=== PATIENT | male | born 1960 | race African-American/Black ===

== ENCOUNTER 2022-02-28 19:59 | Inpatient (IN) | payer OTHER ==
[~2022-02-28] VITALS: Ht 180.3 cm; Wt 62.9 kg
[2022-03-01] VITALS (8 sets, daily range): BP systolic 97–143; BP diastolic 59–83
[2022-03-01] MEDS ORDERED: ASPIRIN 81MG TABLET PO ONE (00:15)
[2022-03-01 01:05] LABS: BASOPHILS % 1.9 % (0.0-2.0); EOSINOPHILS % 2.4 % (0.0-5.0); LYMPHOCYTES % 23.1 % (20.0-50.0); MEAN CORPUSCULAR HEMOGLOBIN 21.1 pg (28.0-32.0); MEAN CORPUSCULAR VOLUME 70.3 fL (80.0-94.0); MEAN PLATELET VOLUME 6.7 fl (7.4-10.4); MONOCYTES % 11.1 % (2.0-8.0); NEUTROPHILS % 61.5 % (40.0-76.0); PLATELET 540 x1000/uL (130-400); RED BLOOD CELL COUNT 2.96 mill/uL (4.7-6.1); RED CELL DISTRIBUTION WIDTH 20.4 % (11.6-14.6)
[2022-03-01 01:13] LABS: HEMATOCRIT. 20.8 % (42.0-52.0); HEMOGLOBIN. 6.2 g/dL (14.0-18.0)
[2022-03-01] MEDS ORDERED: ACETAMINOPHEN 325MG TABLET PO PRN (10:00)
[2022-03-01] MEDS ORDERED: ONDANSETRON HCL 4MG/2ML INJ IV PRN (10:00)
[2022-03-01] MEDS: TAMSULOSIN HCL 0.4MG SR CAPSULE PO SCH (10:14)
[2022-03-01 13:14] LABS: CHLORIDE 106 mEq/L (98-107)
[2022-03-01] MEDS: OMEPRAZOLE 20MG CAPSULE EXTENDED RELEASE PO SCH (16:46)
[2022-03-01 16:57] LABS: PROTHROMBIN TIME 10.8 sec (9.6-11.0)
[2022-03-01 17:39] LABS: *AMPHETAMINES SCREEN URINE NEGATIVE (NEGATIVE); *BARBITURATES SCREEN URINE NEGATIVE (NEGATIVE); *BENZODIAZEPINES SCREEN URINE NEGATIVE (NEGATIVE); *COCAINE SCREEN URINE PRESUMTIVE POSITIVE (NEGATIVE); CANNABINOID URINE SCREEN PRESUMTIVE POSITIVE (NEGATIVE); METHADONE URINE SCREEN NEGATIVE (NEGATIVE); OPIATES URINE SCREEN NEGATIVE (NEGATIVE); PHENCYCLIDINE URINE SCREEN NEGATIVE (NEGATIVE)
[2022-03-01 18:09] LABS: FERRITIN 10 ng/mL (22-322)
[2022-03-01 18:46] LABS: VITAMIN B12 SERUM 1287 pg/mL (211-911)
[2022-03-01] MEDS: NICOTINE 7MG PATCH TD SCH (21:03)
[2022-03-01 21:09] LABS: HEMATOCRIT 23.8 % (42.0-52.0); HEMOGLOBIN 7.3 g/dL (14.0-18.0)
[2022-03-02] VITALS (7 sets, daily range): BP systolic 107–145; BP diastolic 59–81
[2022-03-02] MEDS: OMEPRAZOLE 20MG CAPSULE EXTENDED RELEASE PO SCH (06:10)
[2022-03-02 06:57] LABS: BASOPHILS % 2.2 % (0.0-2.0); EOSINOPHILS % 2.8 % (0.0-5.0); HEMATOCRIT. 23.3 % (42.0-52.0); LYMPHOCYTES % 23.4 % (20.0-50.0); MEAN CORPUSCULAR HEMOGLOBIN 21.7 pg (28.0-32.0); MEAN CORPUSCULAR VOLUME 71.9 fL (80.0-94.0); MEAN PLATELET VOLUME 7.3 fl (7.4-10.4); NEUTROPHILS % 61.6 % (40.0-76.0); PLATELET 492 x1000/uL (130-400); RED BLOOD CELL COUNT 3.24 mill/uL (4.7-6.1)
[2022-03-02] MEDS: TAMSULOSIN HCL 0.4MG SR CAPSULE PO SCH (09:04)
[2022-03-02] MEDS: NICOTINE 7MG PATCH TD SCH (09:05)
[2022-03-02] MEDS: SORBITOL 70% SOLN 30ML PO SCH ×3 (12:59→20:06)
[2022-03-02] MEDS: IRON SUCROSE COMPLEX 100 MG/5 ML ML IV SCH (13:00)
[2022-03-02] MEDS: BISACODYL 5MG TABLET PO SCH ×3 (13:00→20:05)
[2022-03-02] MEDS: METOCLOPRAMIDE HCL 10MG/2ML VIAL IV SCH ×3 (13:01→20:06)
[2022-03-03] VITALS: BP 125/71
[2022-03-03] MEDS: METOCLOPRAMIDE HCL 10MG/2ML VIAL IV SCH (00:07)
[2022-03-03] MEDS: BISACODYL 5MG TABLET PO SCH (00:07)
[2022-03-03] MEDS: SORBITOL 70% SOLN 30ML PO SCH (00:07)
[2022-03-03 04:00] VITALS: BP 105/63
[2022-03-03 04:26] LABS: BASOPHILS % 1.6 % (0.0-2.0); EOSINOPHILS % 1.3 % (0.0-5.0); HEMATOCRIT. 32.4 % (42.0-52.0); LYMPHOCYTES % 20.5 % (20.0-50.0); MEAN CORPUSCULAR HEMOGLOBIN 22.6 pg (28.0-32.0); MEAN CORPUSCULAR VOLUME 73.6 fL (80.0-94.0); MEAN PLATELET VOLUME 7.5 fl (7.4-10.4); MONOCYTES % 10.2 % (2.0-8.0); NEUTROPHILS % 66.4 % (40.0-76.0); PLATELET 583 x1000/uL (130-400); RED BLOOD CELL COUNT 4.41 mill/uL (4.7-6.1); RED CELL DISTRIBUTION WIDTH 20.8 % (11.6-14.6)
[2022-03-03 04:28] LABS: PROTHROMBIN TIME 10.8 sec (9.6-11.0)
[2022-03-03 06:13] LABS: CHLORIDE 108 mEq/L (98-107)
[2022-03-03] MEDS: OMEPRAZOLE 20MG CAPSULE EXTENDED RELEASE PO SCH (07:10)
[2022-03-03 08:00] VITALS: BP 117/66
[2022-03-03] MEDS: NICOTINE 7MG PATCH TD SCH (09:06)
[2022-03-03] MEDS: TAMSULOSIN HCL 0.4MG SR CAPSULE PO SCH (09:07)
[2022-03-03] MEDS: IRON SUCROSE COMPLEX 100 MG/5 ML ML IV SCH (09:08)
[2022-03-03 12:00] VITALS: BP 114/68
[2022-03-03] MEDS ORDERED: MIDAZOLAM HCL 5 MG/5 ML VIAL ONE (12:52)
[2022-03-03] MEDS ORDERED: PROPOFOL 200MG/20ML VIAL IV ONE ×2 (12:53→12:55)
[2022-03-03] MEDS ORDERED: LIDOCAINE HCL 1% 10 MG/ML 10ML VIAL ONE (12:53)
[2022-03-03] MEDS ORDERED: OMEP40CA20 MT (13:04)
[2022-03-03] MEDS ORDERED: PHENYLEPHRINE HCL 10 MG/ML 1ML (IV VIAL) IV ONE ×3 (13:04→13:34)
[2022-03-03] MEDS ORDERED: ETOMIDATE 2MG/ML 10ML VIAL IV ONE (13:36)
[2022-03-03 16:00] VITALS: BP 122/67
[2022-03-03 16:03] LABS: CHLORIDE 105 mEq/L (98-107)
[2022-03-03 20:00] VITALS: BP 107/70
[2022-03-04] VITALS (7 sets, daily range): BP systolic 102–148; BP diastolic 52–82
[2022-03-04] MEDS: OMEPRAZOLE 20MG CAPSULE EXTENDED RELEASE PO SCH (06:45)
[2022-03-04] MEDS: TAMSULOSIN HCL 0.4MG SR CAPSULE PO SCH (09:48)
[2022-03-04] MEDS: IRON SUCROSE COMPLEX 100 MG/5 ML ML IV SCH (09:49)
[2022-03-04] MEDS: NICOTINE 7MG PATCH TD SCH (09:51)
[2022-03-04] MEDS ORDERED: DIATR MEGLU/DIATRIZOATE SOLN 30ML PO SCH (10:00)
[2022-03-04] MEDS ORDERED: IOHEXOL-300 100 ML BOTTLE ONE (13:10)
[2022-03-04] MEDS ORDERED: TAMS-11 MT (19:30)
[2022-03-05 00:18] VITALS: BP 102/52
[2022-03-05 04:00] VITALS: BP 100/50
[2022-03-05] MEDS: OMEPRAZOLE 20MG CAPSULE EXTENDED RELEASE PO SCH (06:15)
[2022-03-05 06:39] LABS: EOSINOPHILS % 2.5 % (0.0-5.0); HEMATOCRIT. 25.5 % (42.0-52.0); HEMOGLOBIN. 8.2 g/dL (14.0-18.0); LYMPHOCYTES % 18.3 % (20.0-50.0); MEAN CORPUSCULAR HEMOGLOBIN 23.1 pg (28.0-32.0); MEAN CORPUSCULAR VOLUME 72.2 fL (80.0-94.0); MEAN PLATELET VOLUME 7.6 fl (7.4-10.4); MONOCYTES % 13.1 % (2.0-8.0); NEUTROPHILS % 65.1 % (40.0-76.0); PLATELET 386 x1000/uL (130-400); RED BLOOD CELL COUNT 3.53 mill/uL (4.7-6.1); RED CELL DISTRIBUTION WIDTH 20.8 % (11.6-14.6)
[2022-03-05 06:47] LABS: CHLORIDE 104 mEq/L (98-107)
[2022-03-05 08:00] VITALS: BP 111/63
[2022-03-05] MEDS: NICOTINE 7MG PATCH TD SCH (09:33)
[2022-03-05] MEDS: TAMSULOSIN HCL 0.4MG SR CAPSULE PO SCH (09:34)
[2022-03-05 10:04] VITALS: BP 111/63
== END 2022-03-05 10:30 | disposition home or self-care (01) | DRG 223 ==
LOC: ER 19:59 → 8WST 03-01 02:21 → EDBEDREQ 03-01 02:27 → EDBEDREQTM 03-01 02:27
PROVIDERS: ADMIT Internal Medicine; ATTEND Internal Medicine
PROC: 30233N1 Transfusion of Nonautologous Red Blood Cells into Peripheral Vein, Percutaneous Approach (ICD-10-PCS; principal; 2022-03-01)
PROC: 0DBC8ZZ Excision of Ileocecal Valve, Via Natural or Artificial Opening Endoscopic (ICD-10-PCS; 2022-03-03)
PROC: 0DB68ZX Excision of Stomach, Via Natural or Artificial Opening Endoscopic, Diagnostic (ICD-10-PCS; 2022-03-03)
DX: K29.41 Chronic atrophic gastritis with bleeding (principal); E43 Unspecified severe protein-calorie malnutrition; I11.0 Hypertensive heart disease with heart failure; I95.9 Hypotension, unspecified; I50.9 Heart failure, unspecified; D50.9 Iron deficiency anemia, unspecified; F17.210 Nicotine dependence, cigarettes, uncomplicated; F19.10 Other psychoactive substance abuse, uncomplicated; K76.0 Fatty (change of) liver, not elsewhere classified; N28.1 Cyst of kidney, acquired; Z20.822 Contact with and (suspected) exposure to COVID-19; Z71.51 Drug abuse counseling and surveillance of drug abuser; Z83.3 Family history of diabetes mellitus
CPT/HCPCS: 36415; 71045; 74177; 76700; 80048; 80053; 80076; 80305; 82270; 82607; 82728; 82746; 83540; 83550; 83880; 84484; 85014; 85018; 85025; 85044; 85379; 86850; 86900; 86920; 87426; 88305; 93005; 99285; J2250; J2370; J2704; J2765; J3490; P9016; Q9963; Q9967

== ENCOUNTER 2025-02-22 04:43 | Emergency (ER) | payer MEDICARE, MEDICAID ==
[~2025-02-22] VITALS: Ht 180.3 cm; Wt 75.0 kg
[~2025-02-22 04:43] MED LIST: OMEP40CA20 MT; TAMS-54 MT
[2025-02-22 04:44] VITALS: O2SAT 97
[2025-02-22 05:23] LABS: BASOPHILS % 1.0 % (0.0-2.0); EOSINOPHILS % 2.2 % (0.0-5.0); HEMATOCRIT. 25.7 % (42.0-52.0); HEMOGLOBIN. 7.8 g/dL (14.0-18.0); LYMPHOCYTES % 19.4 % (20.0-50.0); MEAN PLATELET VOLUME 7.2 fl (7.4-10.4); MONOCYTES % 14.2 % (2.0-8.0); NEUTROPHILS % 63.2 % (40.0-76.0); PLATELET 604 x1000/uL (130-400); RED BLOOD CELL COUNT 3.32 mill/uL (4.7-6.1); RED CELL DISTRIBUTION WIDTH 18.2 % (11.6-14.6)
[2025-02-22 05:37] LABS: CREATININE 0.8 mg/dL (0.6-1.3)
[2025-02-22 05:38] LABS: UREA NITROGEN BLOOD 6 mg/dL (9-23)
[2025-02-22 05:39] LABS: ASPARTATE AMINOTRANSFERASE 30 IU/L (<34); BILIRUBIN DIRECT < 0.1 mg/dL (<=3.0); TROPONIN I HIGH SENSITIVITY 6 ng/L (3.0-53)
[2025-02-22 05:40] LABS: BILIRUBIN TOTAL 0.2 mg/dL (0.1-1.0); PROTEIN TOTAL 7.7 g/dL (6.0-8.3)
[2025-02-22] MEDS: ACETAMINOPHEN 500MG TABLET PO SCH (06:40)
[2025-02-22 07:21] LABS: TROPONIN I HIGH SENSITIVITY 6 ng/L (3.0-53)
[2025-02-22 07:36] VITALS: BP 150/82; PULSE 92; RESP 18; TEMP 36.6; O2SAT 100
== END 2025-02-22 07:37 | disposition home or self-care (01) ==
LOC: ER 04:43 → CMPBEDREQ 08:23
DX: R07.9 Chest pain, unspecified (principal); F12.90 Cannabis use, unspecified, uncomplicated; R06.02 Shortness of breath; F17.200 Nicotine dependence, unspecified, uncomplicated; Z79.899 Other long term (current) drug therapy
CPT/HCPCS: 36415; 71045; 80048; 80076; 83735; 83880; 84484; 85025; 99284